=== PATIENT | male | born 1985 ===

== ENCOUNTER 2025-03-30 02:23 | Inpatient (IN) | payer MEDICAID ==
[~2025-03-30] VITALS: Ht 188 cm; Wt 164.7 kg
--- NOTE | 2025-03-30 02:47 | ED.PDOC ---
GI ASSESSMENT HPI Comments 40-YEAR-OLD MALE PRESENTS TO THE ED PATIENT WITH C/O RIGHT FLANK PAIN AND MID/RIGHT ABDOMINAL PAIN WITH NAUSEA, STARTING AT 1800. PATIENT ALSO C/O HEMATURIA, CLOTS. DENIES DIFFICULTY BREATHING, CHEST PAIN, SHORTNESS OF BREATH, DIZZINESS, DIARRHEA, RECENT TRAVEL, OR KNOWN ILL CONTACTS Chief Complaint: Flank Pain Time Seen by MD: 02:46 Reviewed Notes: Nurses Notes, Medications, Allergies Allergies: Coded Allergies: NO KNOWN ALLERGIES (Unverified , 03/30/25) Mode of Arrival: Ambulatory Past Medical History PAST MEDICAL HISTORY: Denies Surgical History: Denies all surgeries Family History Family History: Reviewed,noncontributory to illness Social History Smoker: Non-Smoker Alcohol: Denies ETOH Use Drugs: Denies Drug Use All Other Systems: Reviewed and Negative (SEE HPI) Physical Exam General Appearance: No Apparent Distress, Normal HEENT: Pharynx Normal Neck: Full Range of Motion, Non-Tender Respiratory: Lungs Clear, No Respiratory Distress, Normal Breath Sounds Cardiovascular: No Edema, No JVD, No Murmur, No Gallop, Normal Peripheral Pulses, Regular Rate/Rhythm Breast Exam: Deferred Gastrointestinal: No Organomegaly, No Pulsatile Mass, Normal Bowel Sounds, Soft, Suprapubic (TENDERNESS), Other (POSITIVE CVA TENDERNESS) Genitalia: Deferred Pelvic: Deferred Rectal: Deferred Extremities: Normal range of motion, No pedal edema Musculoskeletal : Apperance: Normal Neurologic: Alert, No Motor Deficits, Normal Affect, Normal Mood, No Sensory Deficits Cerebellar Function: Normal Reflexes: NOT DONE Skin: Dry, Normal Color, Warm Lymphatic: No Adenopathy Was a procedure done? Was a procedure done?: No GI differential Dx Differential Diagnosis: Gastritis/PUD, Gastroenteritis, Inflammatory BD, UTI, Urolithiasis, Kidney Stone X-Ray, Labs, Meds, VS Vital Signs Date Time Temp Pulse Resp B/P (MAP) Pulse Ox O2 Delivery O2 Flow Rate FiO2 03/30/25 02:23 97.6 79 18 163/105 96 97.6 Lab Test 03/30/25 02:55 Range/Units White Blood Count 10.0 4.4-10.8 10^3/uL Red Blood Count 5.23 4.5-5.90 10^6/uL Hemoglobin 17.1 13.5-17.5 g/dL Hematocrit 48.3 41.0-53.0 % Mean Corpuscular Volume 92.3 80.0-100.0 fL Mean Corpuscular Hemoglobin 32.6 H 28.0-32.0 pg Mean Corpuscular Hemoglobin Concent 35.4 32.0-36.0 g/dL Red Cell Distribution Width 13.6 11.8-14.3 % Platelet Count 191 140-450 10^3/uL Mean Platelet Volume 8.1 6.9-10.8 fL Neutrophils (%) (Auto) 64.1 37.0-80.0 % Lymphocytes (%) (Auto) 21.1 10.0-50.0 % Monocytes (%) (Auto) 12.1 H 0.0-12.0 % Eosinophils (%) (Auto) 2.2 0.0-7.0 % Basophils (%) (Auto) 0.5 0.0-2.0 % Neutrophils # (Auto) 6.4 1.6-8.6 10 ^3/uL Lymphocytes # (Auto) 2.1 0.4-5.4 10 ^3/uL Monocytes # (Auto) 1.2 0-1.3 10 ^3/uL Eosinophils # (Auto) 0.2 0-0.8 10 ^3/uL Basophils # (Auto) 0.1 0-0.2 10 ^3/uL Nucleated Red Blood Cells 0.1 % Sodium Level 136 136-145 mmol/L Potassium Level 3.7 3.5-5.1 mmol/L Chloride Level 101 98-107 mmol/L Carbon Dioxide Level 27 20-31 mmol/L Anion Gap 8 5-15 Blood Urea Nitrogen 12 9-23 mg/dL Creatinine 1.14 0.700-1.30 mg/dL Glomerular Filtration Rate Calc 84 >90 mL/min BUN/Creatinine Ratio 10.5 10.0-20.0 Serum Glucose 117 H 74-106 mg/dL Calcium Level 8.8 8.7-10.4 mg/dL Total Bilirubin 0.6 0.2-1.0 mg/dL Aspartate Amino Transferase (AST) 49 H 13-40 U/L Alanine Aminotransferase (ALT) 84 H 7-40 U/L Alkaline Phosphatase 86 46-116 U/L Total Protein 7.5 5.7-8.2 g/dL Albumin 4.1 3.2-4.8 g/dL X-Ray, Labs, Meds, VS Comment CT ABDOMEN AND PELVIS IMPRESSION: 1. Moderate right hydronephrosis and perinephric inflammatory change secondary to a partially obstructing proximal ureteral calculus. Patient continues with moderate pain and discomfort. Patient with hydronep hrosis and partially obstructing urethral calculus we will place patient in for hospitalist for admission, Time of 1ST Reevaluation: 03:10 Reevaluation 1ST: Unchanged Time of 2ND Reevaluation: 04:26 Reevaluation 2ND: Unchanged Patient Education/Counseling: Diagnosis, Treatment, Prognosis, Need For Follow Up Family Education/Counseling: No Family Present SEPSIS Sepsis Screen Date sepsis recognized/suspect: Mar 30, 2025 Time Sepsis recognized/suspect: 222 Recent Procedure: No On Antibiotic Therapy: No Respiratory Rate >20: No Heart Rate >90: No Temp<36 C (96.8 F) or >38.3 C: No SBP <90 or MAP <65 mmHG: No New Acute Mental Status Change: No Is the patient on CPAP, BIPAP,: No Physician Orders Urinalysis (03/30/25 02:47) Ct Ab Pel Wo Con-No Oral Or Iv (03/30/25 02:47) Vital Signs Date Time Temp Pulse Resp B/P (MAP) Pulse Ox O2 Delivery O2 Flow Rate FiO2 03/30/25 02:23 97.6 79 18 163/105 96 97.6 Laboratory Tests Test 03/30/25 02:55 White Blood Count 10.0 10^3/uL (4.4-10.8) Departure 1 Departure Time of Disposition: 04:25 Impression: Primary Impression: Hydronephrosis with urinary obstruction due to ureteral calculus Disposition: ADMITTED INPATIENT Condition: Stable Discharged With: Self Critical Care Note Critical Care Time?: No Stability Stability form required: JENNIFER Chahal Mar 30, 2025 02:47
[2025-03-30] MEDS: SODIUM CHLORIDE 0.9% 1,000 ML IV SCH (03:00)
[2025-03-30] MEDS: SODIUM CHLORIDE 0.9% 1,000 ML IV ONE (03:00)
[2025-03-30 03:15] LABS: Hematocrit 48.3 % (41.0-53.0); Hemoglobin 17.1 g/dL (13.5-17.5); Mean Corpuscular Hemoglobin 32.6 pg (28.0-32.0); Mean Corpuscular Volume 92.3 fL (80.0-100.0); Nucleated Red Blood Cells % 0.1 %
[2025-03-30 03:29] LABS: Albumin 4.1 g/dL (3.2-4.8); Alkaline Phosphatase 86 U/L (46-116); Anion Gap 8 (5-15); BUN/Creatinine Ratio 10.5 (10.0-20.0); Bilirubin, Total 0.6 mg/dL (0.2-1.0); Blood Urea Nitrogen 12 mg/dL (9-23); Calcium 8.8 mg/dL (8.7-10.4); Carbon Dioxide 27 mmol/L (20-31); Chloride 101 mmol/L (98-107); Potassium 3.7 mmol/L (3.5-5.1); Sodium 136 mmol/L (136-145); Total Protein 7.5 g/dL (5.7-8.2)
[2025-03-30 03:41] LABS: Alanine Aminotransferase 84 U/L (7-40); Glucose 117 mg/dL (74-106)
--- NOTE | 2025-03-30 04:18 | DVH ---
Exam: CT CT AB PEL WO CON-NO ORAL OR IV History: FLANK PAIN WITH BLOOD CLOTS Comparison Study: None Technique: Multidetector spiral CT of the abdomen was performed from lung bases to pubic symphysis. I maging was performed without IV contrast. Axial, coronal and sagittal multiplanar reformats were obta ined from the axial data set by the technologist. Radiation Dose : 1. Abdomen/Pelvis: CTDIvol 27.37 mGy, DLP 1805.81 mGy*cm. Findings: Evaluation of solid organs is limited due to lack of intravenous contrast use. Lung Bases: 1.2 cm nodular density within the posteromedial left lung base. Otherwise, no acute or si gnificant lung base finding. Normal heart size. No pleural or pericardial effusion. Liver: The liver is normal in size. No focal lesions. Gallbladder and Biliary Tree: Unremarkable Spleen: Unremarkable Pancreas: The pancreas is grossly normal in appearance. Adrenal Glands: Unremarkable Kidneys: Moderate right hydronephrosis and perinephric inflammatory change secondary to a partially o bstructing proximal ureteral calculus measuring 5 mm in diameter. No other calculi noted. No evidenc e of left hydronephrosis. Bladder: Grossly unremarkable for degree of distention. Bowel: Small hiatal hernia. The stomach is grossly normal in appearance. Small bowel and colon are no rmal in caliber and distribution. The appendix is normal. Ascites: Absent Lymphadenopathy: No mesenteric, retroperitoneal or periportal lymphadenopathy. Abdominal Wall and Mesentery: Unremarkable. Vasculature: The visualized abdominal aorta is normal in size and caliber. Evaluation of abdominal a nd pelvic vessels is limited due to lack of intravenous contrast. Pelvic Organs: Unremarkable Musculoskeletal: No aggressive focal bony lesions, acute fractures or dislocation. IMPRESSION: 1. Moderate right hydronephrosis and perinephric inflammatory change secondary to a partially obstruc ting proximal ureteral calculus. Radiation optimization: All CT scans at this facility use at least one of these dose optimization cecilia hniques: automated exposure control mA and/or kV adjustment per patient size (includes targeted exam s where dose is matched to clinical indication) or iterative reconstruction.
[2025-03-30] MEDS: TAMSULOSIN HYDROCHLORIDE 0.4 MG CAP PO ONE (04:30)
[2025-03-30] MEDS: KETOROLAC TROMETH 30 MG/ML 1ML VIAL IV ONE (06:23)
[2025-03-30] MEDS: ONDANSETRON HCL 4 MG/2 ML VIAL IV ONE (06:24)
[2025-03-30] MEDS ORDERED: HYDROcodone-ACET 5/325MG TAB PO PRN (09:15)
[2025-03-30] MEDS ORDERED: MORPHINE SULFATE INJ 2 MG/ml SYRG IV PRN (09:15)
[2025-03-30] MEDS ORDERED: ONDANSETRON HCL 4 MG/2 ML VIAL IV PRN (09:15)
--- NOTE | 2025-03-30 09:25 | DVHHP2 ---
History of Present Illness Reason for Visit: Right flank pain radiating to the abdomen History of Present Illness Aryan Gomez is a 40-year-old male with no reported past medical history who presents to the ED with right flank pain that radiated to the abdomen at started yesterday. Patient reported that the pain was 10/10 felt like waves and was constant. He reports that this is the 2nd time happening in the 1st incident occurred last year in September. Patient reports that he takes Tylenol on and off for pain but no prescription medications. Patient also reports that he dr inks occasionally. Upon examination patient reports that his pain is 0/10 and that the pain medication had helped. Patient denies any recent trauma or injury, recent sick contacts, recent ingestion of spoiled food, recent travels, chest pain, shortness of breath, fever, chills, lightheadedness, weakness, dizziness, nausea, vomiting, or diarrhea. Past Surgical History: None Family History: None Smoke: No ALCOHOL: occassional Drugs: None Lives: with Family Domestic Violence: Neg Review of Systems Gastrointestinal: Abdominal Pain Musculoskeletal: other (Right flank pain) Allergies: Coded Allergies: NO KNOWN ALLERGIES (Unverified , 03/30/25) Medications Current Medications Medications Dose Ordered Sig/Yara Route Start Time Stop Time Status Last Admin Dose Admin Tamsulosin HCl 0.4 mg QPM PO 03/30/25 18:00 UNV Sodium Chloride 1,000 ml @ 100 mls/hr Q10H IV 03/30/25 09:15 UNV Exam Vital Signs Vital Signs Date Time Temp Pulse Resp B/P (MAP) Pulse Ox O2 Delivery O2 Flow Rate FiO2 03/30/25 02:46 Room Air 03/30/25 02:23 97.6 79 18 163/105 96 97.6 General Appearance: Alert, Oriented X3, Cooperative, No acute distress HEENT: Atraumatic, PERRLA, EOMI, Mucous membr. moist/pink Respiratory: Clear to auscultation Cardiovascular: Regular rate, Normal S1, Normal S2, No murmurs Abdominal: Normal bowel sounds, Soft Extremities: No clubbing, No cyanosis, No edema, Normal pulses Skin: No rashes, No breakdown, No significant lesion Neuro: Normal gait, Normal speech, Strength at 5/5 X4 ext, Normal tone, Sensation intact Psych/Mental Status: Mental status NL, Mood NL Labs/Xrays Labs Test 03/30/25 02:55 Range/Units White Blood Count 10.0 4.4-10.8 10^3/uL Red Blood Count 5.23 4.5-5.90 10^6/uL Hemoglobin 17.1 13.5-17.5 g/dL Hematocrit 48.3 41.0-53.0 % Mean Corpuscular Volume 92.3 80.0-100.0 fL Mean Corpuscular Hemoglobin 32.6 H 28.0-32.0 pg Mean Corpuscular Hemoglobin Concent 35.4 32.0-36.0 g/dL Red Cell Distribution Width 13.6 11.8-14.3 % Platelet Count 191 140-450 10^3/uL Mean Platelet Volume 8.1 6.9-10.8 fL Neutrophils (%) (Auto) 64.1 37.0-80.0 % Lymphocytes (%) (Auto) 21.1 10.0-50.0 % Monocytes (%) (Auto) 12.1 H 0.0-12.0 % Eosinophils (%) (Auto) 2.2 0.0-7.0 % Basophils (%) (Auto) 0.5 0.0-2.0 % Neutrophils # (Auto) 6.4 1.6-8.6 10 ^3/uL Lymphocytes # (Auto) 2.1 0.4-5.4 10 ^3/uL Monocytes # (Auto) 1.2 0-1.3 10 ^3/uL Eosinophils # (Auto) 0.2 0-0.8 10 ^3/uL Basophils # (Auto) 0.1 0-0.2 10 ^3/uL Nucleated Red Blood Cells 0.1 % Sodium Level 136 136-145 mmol/L Potassium Level 3.7 3.5-5.1 mmol/L Chloride Level 101 98-107 mmol/L Carbon Dioxide Level 27 20-31 mmol/L Anion Gap 8 5-15 Blood Urea Nitrogen 12 9-23 mg/dL Creatinine 1.14 0.700-1.30 mg/dL Glomerular Filtration Rate Calc 84 >90 mL/min BUN/Creatinine Ratio 10.5 10.0-20.0 Serum Glucose 117 H 74-106 mg/dL Calcium Level 8.8 8.7-10.4 mg/dL Total Bilirubin 0.6 0.2-1.0 mg/dL Aspartate Amino Transferase (AST) 49 H 13-40 U/L Alanine Aminotransferase (ALT) 84 H 7-40 U/L Alkaline Phosphatase 86 46-116 U/L Total Protein 7.5 5.7-8.2 g/dL Albumin 4.1 3.2-4.8 g/dL Exam: CT CT AB PEL WO CON-NO ORAL OR IV History: FLANK PAIN WITH BLOOD CLOTS Comparison Study: None Technique: Multidetector spiral CT of the abdomen was performed from lung bases to pubic symphysis. Imaging was performed without IV contrast. Axial, coronal and sagittal multiplanar reformats were obtained from the axial data set by the technologist. Radiation Dose : 1. Abdomen/Pelvis: CTDIvol 27.37 mGy, DLP 1805.81 mGy*cm. Findings: Evaluation of solid organs is limited due to lack of intravenous contrast use. Lung Bases: 1.2 cm nodular density within the posteromedial left lung base. Otherwise, no acute or significant lung base finding. Normal heart size. No pleural or pericardial effusion. Liver: The liver is normal in size. No focal lesions. Gallbladder and Biliary Tree: Unremarkable Spleen: Unremarkable Pancreas: The pancreas is grossly normal in appearance. Adrenal Glands: Unremarkable Kidneys: Moderate right hydronephrosis and perinephric inflammatory change secondary to a partially obstructing proximal ureteral calculus measuring 5 mm in diameter. No other calculi noted. No evidence of left hydronephrosis. Bladder: Grossly unremarkable for degree of distention. Bowel: Small hiatal hernia. The stomach is grossly normal in appearance. Small bowel and colon are normal in caliber and distribution. The appendix is normal. Ascites: Absent Lymphadenopathy: No mesenteric, retroperitoneal or periportal lymphadenopathy. Abdominal Wall and Mesentery: Unremarkable. Vasculature: The visualized abdominal aorta is normal in size and caliber. Evaluation of abdominal and pelvic vessels is limited due to lack of intravenous contrast. Pelvic Organs: Unremarkable Musculoskeletal: No aggressive focal bony lesions, acute fractures or dislocation. IMPRESSION: 1. Moderate right hydronephrosis and perinephric inflammatory change secondary to a partially obstructing proximal ureteral calculus. SEPSIS Sepsis Screen Date sepsis recognized/suspect: Mar 30, 2025 Time Sepsis recognized/suspect: 222 Recent Procedure: No On Antibiotic Therapy: No Respiratory Rate >20: No Heart Rate >90: No Temp<36 C (96.8 F) or >38.3 C: No SBP <90 or MAP <65 mmHG: No New Acute Mental Status Change: No Is the patient on CPAP, BIPAP,: No Physician Orders Urinalysis (03/30/25 02:47) Ct Ab Pel Wo Con-No Oral Or Iv (03/30/25 02:47) Tamsulosin Hydrochloride (Flomax) (03/30/25 18:00) Sodium Chloride 0.9% (03/30/25 09:15) Admit (03/30/25 09:11) Allergies (03/30/25 09:11) Code Status (03/30/25 09:11) Hydrocodone-Acet 5/325mg Tab ([place] 5/32 (03/30/25 09:15) Ondansetron Hcl (Zofran) (03/30/25 09:15) Complete Blood Count (03/31/25 04:00) Comprehensive Metabolic Panel (03/31/25 04:00) Cardiac Diet-2gna,Lofat,Lochol (03/30/25 Breakfast) Acetaminophen Tablet (Tylenol Tablet) (03/30/25 09:15) Morphine Sulfate Injection (03/30/25 09:15) Sequential Compression Device (03/30/25 ) Vital Signs Date Time Temp Pulse Resp B/P (MAP) Pulse Ox O2 Delivery O2 Flow Rate FiO2 03/30/25 02:46 Room Air 03/30/25 02:23 97.6 79 18 163/105 96 97.6 Laboratory Tests Test 03/30/25 02:55 White Blood Count 10.0 10^3/uL (4.4-10.8) Medications Medications Dose Ordered Sig/Yara Route Start Time Stop Time Status Last Admin Dose Admin Ketorolac Tromethamine 30 mg ONCE ONCE IV 03/30/25 03:00 03/30/25 03:01 DC 03/30/25 06:23 30 MG Ondansetron HCl 4 mg ONCE ONCE IV 03/30/25 03:00 03/30/25 03:01 DC 03/30/25 06:24 4 MG Sodium Chloride 1,000 ml @ 1,000 mls/hr Q1H ONCE IV 03/30/25 03:00 03/30/25 03:59 DC 03/30/25 03:00 1,000 MLS/HR Tamsulosin HCl 0.4 mg ONCE ONCE PO 03/30/25 04:30 03/30/25 04:31 DC 03/30/25 04:30 0.4 MG Assessment/Plan Assessment/Plan Assessment Intractable right flank pain likely due to moderate right hydronephrosis and perinephric inflammatory partially obstructing proximal ureteral calculus Morbid obesity Alcohol use Plan Admit to med surge Antiemetics Pain management Tamsulosin NS 1 L given in ED CT abdomen and pelvis noted UA IV fluids Diet Patient reports no home medications taken DVT prophylaxis-not indicated patient ambulating PUD prophylaxis-not indicated no history of GERD or GI bleed Discussed plan of care with patient and nurse Consider Urology consult if calculi does not pass or pain is unrelieved or increasing inflammatory changes Counseled patient on cessation of alcohol use Counseled patient on lifestyle modifications, diet, and exercise [id number] Preventive counseling healthy eating habits, physical activity, and regular checkups Plan discussed with: Patient My Orders Orders - SUMIT MEJIA Procedure Category Date Status Time Tamsulosin PHA 03/30/25 Logged Hydrochloride (Flomax) 18:00 Sodium Chloride 0.9% PHA 03/30/25 Logged 09:15 Admit ADMIT 03/30/25 Transmitted 09:11 Allergies ACE 03/30/25 In Process 09:11 Code Status CODE 03/30/25 Transmitted 09:11 Hydrocodone-Acet PHA 03/30/25 Transmitted 5/325mg Tab ([place] 09:15 Ondansetron Hcl PHA 03/30/25 Transmitted (Zofran) 09:15 Complete Blood Count LAB 03/31/25 Verified 04:00 Comprehensive LAB 03/31/25 Verified Metabolic Panel 04:00 Cardiac DIET 03/30/25 Transmitted Diet-2gna,Lofat,Lochol Breakfast Acetaminophen Tablet PHA 03/30/25 Transmitted (Tylenol Tablet) 09:15 Morphine Sulfate PHA 03/30/25 Transmitted Injection 09:15 Sequential ACE 03/30/25 In Process Compression Device Date of Service: Mar 30, 2025 Billing Provider: SUMIT MEJIA Common Visit Codes: 68091-CSRCTHT INP/OBS CARE (HIGH) Secondary Visit Codes: [id number] COUNSELING IND SUMIT MEJIA Mar 30, 2025 09:25
[2025-03-30 12:30] LABS: Urine Protein, UAD Negative (Negative)
[2025-03-30 14:03] VITALS: PULSE 74; RESP 17; O2SAT 96
[2025-03-30 15:38] VITALS: BP 135/96; PULSE 75; RESP 18; TEMP 98.6; O2SAT 95
[2025-03-30] MEDS: TAMSULOSIN HYDROCHLORIDE 0.4 MG CAP PO SCH (17:37)
[2025-03-30 18:47] VITALS: BP 137/72; PULSE 78; RESP 18; TEMP 98.2; O2SAT 95
[2025-03-30 21:16] VITALS: BP 140/78; PULSE 84; RESP 20; TEMP 99.6; O2SAT 93
[2025-03-31] VITALS (8 sets, daily range): BP systolic 120–141; BP diastolic 56–89; PULSE 72–91; RESP 16–20; TEMP 98.1–99.2; O2SAT 93–96
[2025-03-31 07:28] LABS: Hematocrit 48.9 % (41.0-53.0); Hemoglobin 16.8 g/dL (13.5-17.5); Mean Corpuscular Hemoglobin 32.6 pg (28.0-32.0); Mean Corpuscular Volume 95.1 fL (80.0-100.0); Nucleated Red Blood Cells % 0.1 %
[2025-03-31 07:45] LABS: Alkaline Phosphatase 81 U/L (46-116); Anion Gap 9 (5-15); BUN/Creatinine Ratio 11.3 (10.0-20.0); Blood Urea Nitrogen 14 mg/dL (9-23); Calcium 8.8 mg/dL (8.7-10.4); Carbon Dioxide 25 mmol/L (20-31); Chloride 103 mmol/L (98-107); Potassium 4.0 mmol/L (3.5-5.1); Sodium 137 mmol/L (136-145); Total Protein 7.1 g/dL (5.7-8.2)
[2025-03-31 07:46] LABS: Albumin 4.1 g/dL (3.2-4.8); Bilirubin, Total 1.1 mg/dL (0.2-1.0)
[2025-03-31 07:47] LABS: Alanine Aminotransferase 70 U/L (7-40); Glucose 108 mg/dL (74-106)
--- NOTE | 2025-03-31 18:20 | DVHPN2 ---
Subjective Cross ring for dyspnea with the hospitalist today. Patient admitted overnight for renal colic pain. Today he is pain-free. Changes from previous H/P or p: No Changes Gastrointestinal: Abdominal Pain Musculoskeletal: other (Right flank pain) Objective Vitals Vital Signs Date Time Temp Pulse Resp B/P (MAP) Pulse Ox O2 Delivery O2 Flow Rate FiO2 03/31/25 17:10 98.3 80 18 122/69 (86) 95 98.3 03/30/25 15:38 Room Air* 0 21 Exam Obese gentleman comfortable sitting in the chair. Alert awake oriented x3. HEENT neck supple no JVD. Heart regular rate and rhythm S1-S2. Lungs fair air movement without rales wheezes. Abdomen obese soft nontender positive bowel sounds. Extremities no edema positive pulses. Medications Current Medications Medications Dose Ordered Sig/Yara Route Start Time Stop Time Status Last Admin Dose Admin Tamsulosin HCl 0.4 mg QPM PO 03/30/25 18:00 03/30/25 17:37 0.4 MG Sodium Chloride 1,000 ml @ 100 mls/hr Q10H IV 03/30/25 09:15 03/31/25 14:38 100 MLS/HR Acetaminophen/ Hydrocodone Bitart 1 tab Q4HP PRN PO 03/30/25 09:15 Ondansetron HCl 4 mg Q4HP PRN IV 03/30/25 09:15 Acetaminophen 650 mg Q6HP PRN PO 03/30/25 09:15 Morphine Sulfate 2 mg Q4HPRN PRN IV 03/30/25 09:15 Laboratory Results Laboratory Tests 03/31/25 06:43 Chemistry Test 03/31/25 06:43 Albumin 4.1 g/dL (3.2-4.8) Calcium Level 8.8 mg/dL (8.7-10.4) Total Protein 7.1 g/dL (5.7-8.2) LFT Test 03/31/25 06:43 Alanine Aminotransferase (ALT) 70 U/L (7-40) H Alkaline Phosphatase 81 U/L (46-116) Aspartate Amino Transferase (AST) 38 U/L (13-40) Total Bilirubin 1.1 mg/dL (0.2-1.0) H Urinalysis Test 03/30/25 07:41 Urine Color Light-yellow (Yellow) Urine Clarity Clear (Clear) Urine pH 7.0 (5.0-9.0) Urine Specific [place] 1.017 (1.001-1.035) Urine Protein Negative (Negative) Urine Ketones Negative (Negative) Urine Blood 3+ /uL (Negative) H Urine Nitrite Negative (Negative) Urine Bilirubin Negative (Negative) Urine Urobilinogen Normal mg/dL (Negative) Urine Leukocyte Esterase Negative /uL (Negative) Urine RBC 375 /hpf (0 - 3) Urine Microscopic WBC 3 /HPF (0-3) Urine Squamous Epithelial Cells Few /hpf (<5) Urine Bacteria None seen /hpf (None Seen) Urine Glucose Normal mg/dL (Normal) Assessment/Plan Assessment/Plan Intractable right flank pain likely due to moderate right hydronephrosis and perinephric inflammatory partially obstructing proximal ureteral calculus Morbid obesity Alcohol use I will give him mannitol for forced renal diuresis. Aggressive IV hydration and Lasix. Continue Flomax. Monitor him overnight. If he remains free consider discharge home tomorrow. Strain his urine. Discussed with the patient and nurse. Plan discussed with: Patient, Other Date of Service: Mar 31, 2025 Billing Provider: JUAN LUIS MORAN MD Common Visit Codes: [id number] INP/OBS CARE(MOD) JUAN LUIS MORAN MD Mar 31, 2025 18:20
[2025-03-31] MEDS: FUROSEMIDE 20 MG/2 ML VIAL IV SCH (18:56)
[2025-03-31] MEDS: MANNITOL 20% SOLN 100 gm/500ml 300 ML IV ONE (18:59)
[2025-03-31] MEDS: SODIUM CHLORIDE 0.9% 1,000 ML IV SCH (19:00)
[2025-03-31] MEDS: SODIUM CHLORIDE 0.9% 500 ML IV ONE (19:00)
[2025-03-31] MEDS: ACETAMINOPHEN 325 MG TAB PO PRN (20:17)
[2025-04-01 01:00] VITALS: BP 124/73; PULSE 85; RESP 18; TEMP 98.4; O2SAT 96
[2025-04-01 05:00] VITALS: BP 116/85; PULSE 84; RESP 18; TEMP 98; O2SAT 96
[2025-04-01 06:56] LABS: Chloride 100 mmol/L (98-107); Potassium 3.8 mmol/L (3.5-5.1); Sodium 138 mmol/L (136-145)
[2025-04-01 06:57] LABS: Anion Gap 8 (5-15); Carbon Dioxide 30 mmol/L (20-31)
[2025-04-01 06:58] LABS: Calcium 9.1 mg/dL (8.7-10.4)
[2025-04-01 07:02] LABS: Glucose 106 mg/dL (74-106)
[2025-04-01 07:03] LABS: BUN/Creatinine Ratio 11.1 (10.0-20.0); Blood Urea Nitrogen 14 mg/dL (9-23)
[2025-04-01 08:28] VITALS: BP 114/74; PULSE 81; RESP 20; TEMP 98.3; O2SAT 91
[2025-04-01 12:30] VITALS: BP 130/77; PULSE 81; RESP 20; TEMP 98.2; O2SAT 94
--- NOTE | 2025-04-01 17:02 | DVHDS2 ---
Discharge Summary Date of Admission Mar 30, 2025 at 09:11 Date of Discharge: Apr 01, 2025 Labs/Diagnostic Data: Laboratory Results Test 04/01/25 05:35 03/31/25 06:43 03/30/25 07:41 Sodium Level 138 mmol/L (136-145) Potassium Level 3.8 mmol/L (3.5-5.1) Chloride Level 100 mmol/L (98-107) Carbon Dioxide Level 30 mmol/L (20-31) Anion Gap 8 (5-15) Blood Urea Nitrogen 14 mg/dL (9-23) Creatinine 1.26 mg/dL (0.700-1.30) Glomerular Filtration Rate Calc 74 mL/min (>90) BUN/Creatinine Ratio 11.1 (10.0-20.0) Serum Glucose 106 mg/dL (74-106) Calcium Level 9.1 mg/dL (8.7-10.4) White Blood Count 8.4 10^3/uL (4.4-10.8) Red Blood Count 5.14 10^6/uL (4.5-5.90) Hemoglobin 16.8 g/dL (13.5-17.5) Hematocrit 48.9 % (41.0-53.0) Mean Corpuscular Volume 95.1 fL (80.0-100.0) Mean Corpuscular Hemoglobin 32.6 pg (28.0-32.0) Mean Corpuscular Hemoglobin Concent 34.3 g/dL (32.0-36.0) Red Cell Distribution Width 13.6 % (11.8-14.3) Platelet Count 177 10^3/uL (140-450) Mean Platelet Volume 7.9 fL (6.9-10.8) Neutrophils (%) (Auto) 64.6 % (37.0-80.0) Lymphocytes (%) (Auto) 23.2 % (10.0-50.0) Monocytes (%) (Auto) 10.1 % (0.0-12.0) Eosinophils (%) (Auto) 1.5 % (0.0-7.0) Basophils (%) (Auto) 0.6 % (0.0-2.0) Neutrophils # (Auto) 5.4 10 ^3/uL (1.6-8.6) Lymphocytes # (Auto) 1.9 10 ^3/uL (0.4-5.4) Monocytes # (Auto) 0.8 10 ^3/uL (0-1.3) Eosinophils # (Auto) 0.1 10 ^3/uL (0-0.8) Basophils # (Auto) 0.1 10 ^3/uL (0-0.2) Nucleated Red Blood Cells 0.1 % Total Bilirubin 1.1 mg/dL (0.2-1.0) Aspartate Amino Transferase (AST) 38 U/L (13-40) Alanine Aminotransferase (ALT) 70 U/L (7-40) Alkaline Phosphatase 81 U/L (46-116) Total Protein 7.1 g/dL (5.7-8.2) Albumin 4.1 g/dL (3.2-4.8) Urine Color Light-yellow (Yellow) Urine Clarity Clear (Clear) Urine pH 7.0 (5.0-9.0) Urine Specific [place] 1.017 (1.001-1.035) Urine Protein Negative (Negative) Urine Ketones Negative (Negative) Urine Blood 3+ /uL (Negative) Urine Nitrite Negative (Negative) Urine Bilirubin Negative (Negative) Urine Urobilinogen Normal mg/dL (Negative) Urine Leukocyte Esterase Negative /uL (Negative) Urine RBC 375 /hpf (0 - 3) Urine Microscopic WBC 3 /HPF (0-3) Urine Squamous Epithelial Cells Few /hpf (<5) Urine Bacteria None seen /hpf (None Seen) Urine Glucose Normal mg/dL (Normal) Other Laboratory Tests 04/01/25 05:35 03/31/25 06:43 Brief Hx & Hospital Course: Aryan Gomez is a 40-year-old male with no reported past medical history who presents to the ED with right flank pain that radiated to the abdomen at started yesterday. Patient reported that the pain was 10/10 felt like waves and was constant. He reports that this is the 2nd time happening in the 1st incident occurred last year in September. Patient reports that he takes Tylenol on and off for pain but no prescription medications. Patient also reports that he drinks occasionally. Upon examination patient reports that his pain is 0/10 and that the pain medication had helped. Patient denies any recent trauma or injury, recent sick contacts, recent ingestion of spoiled food, recent travels, chest pain, shortness of breath, fever, chills, lightheadedness, weakness, dizziness, nausea, vomiting, or diarrhea. He is admitted and received IV fluids, Lasix, Flomax and mannitol for forced diuresis. Patient appears he may have passed the stone. His pain is resolved. He is feeling better back to normal baseline status. Therefore he has been discharged home in stable condition. However he is advised to follow up with the PCP and urologist should he have any recurrent symptoms. Meantime patient also counseled and educated regarding his obesity and advised with a low-fat low-cholesterol diet, exercise and weight loss programs. He is advised to follow up with the primary care physician for further weight loss counseling and treatment care plan. Patient verbalized understanding of his hospital diagnosis, treatment he received, discharge medications, discharge instructions and discharge follow-up plan of care and agree with the care plan as outlined Operations or Procedures Exam: CT CT AB PEL WO CON-NO ORAL OR IV History: FLANK PAIN WITH BLOOD CLOTS Comparison Study: None Technique: Multidetector spiral CT of the abdomen was performed from lung bases to pubic symphysis. Imaging was performed without IV contrast. Axial, coronal and sagittal multiplanar reformats were obtained from the axial data set by the technologist. Radiation Dose : 1. Abdomen/Pelvis: CTDIvol 27.37 mGy, DLP 1805.81 mGy*cm. Findings: Evaluation of solid organs is limited due to lack of intravenous contrast use. Lung Bases: 1.2 cm nodular density within the posteromedial left lung base. Otherwise, no acute or significant lung base finding. Normal heart size. No pleural or pericardial effusion. Liver: The liver is normal in size. No focal lesions. Gallbladder and Biliary Tree: Unremarkable Spleen: Unremarkable Pancreas: The pancreas is grossly normal in appearance. Adrenal Glands: Unremarkable Kidneys: Moderate right hydronephrosis and perinephric inflammatory change secondary to a partially obstructing proximal ureteral calculus measuring 5 mm in diameter. No other calculi noted. No evidence of left hydronephrosis. Bladder: Grossly unremarkable for degree of distention. Bowel: Small hiatal hernia. The stomach is grossly normal in appearance. Small bowel and colon are normal in caliber and distribution. The appendix is normal. Ascites: Absent Lymphadenopathy: No mesenteric, retroperitoneal or periportal lymphadenopathy. Abdominal Wall and Mesentery: Unremarkable. Vasculature: The visualized abdominal aorta is normal in size and caliber. Evaluation of abdominal and pelvic vessels is limited due to lack of intravenous contrast. Pelvic Organs: Unremarkable Musculoskeletal: No aggressive focal bony lesions, acute fractures or dislocation. IMPRESSION: 1. Moderate right hydronephrosis and perinephric inflammatory change secondary to a partially obstructing proximal ureteral calculus. Condition at Discharge: Stable Final Diagnosis/Problems List Intractable right flank pain partially obstructing proximal ureteral calculus Morbid obesity Alcohol use Discharge Disposition: Home Discharge Instruct/Medications Diet: Consistent carbohydrate, Cardiac 2g Na,low cholest Activity: No Restrictions, As Tolerated Follow Up/Referral: Primary care physician and referral to urologist if you have any recurrent symptoms Medications: Home medications if your taking any No Active Prescriptions or Reported Meds Discharge Statement: "Patient was advised to return to the ER or call 911 if any headaches, dizziness, shortness of breath, chest pain, abdominal pain, bleeding, fevers, or worsening of medical condition. Patient was counseled about treatment plan, medications, possible side effects, patientverbalized understanding. All questions were answered to the best of my ability. This discharge took greater then 30 minutes in planning, reviewing documentation, counseling the patient, and discussing with other team members." ASSESSMENT ASSESSMENT Assessment Intractable right flank pain partially obstructing proximal ureteral calculus Morbid obesity Alcohol use Date of Service: Apr 01, 2025 Billing Provider: JUAN LUIS MORAN MD Common Visit Codes: 88699-JIZ/OBS DISCH DAY <30MIN JUAN LUIS MORAN MD Apr 01, 2025 17:02
[2025-04-01 17:36] VITALS: BP 130/79; PULSE 75; RESP 20; TEMP 98.2; O2SAT 94
== END 2025-04-01 18:23 | disposition home or self-care (01) | DRG 694 ==
LOC: ER 02:23 → EDBD 02:23 → OVERFLOW 09:11 → WEST WING 03-31 17:00
DX: N13.2 Hydronephrosis with renal and ureteral calculous obstruction (principal); Z68.42 Body mass index [BMI] 45.0-49.9, adult; E66.01 Morbid (severe) obesity due to excess calories; F10.90 Alcohol use, unspecified, uncomplicated; Z79.899 Other long term (current) drug therapy; Y90.9 Presence of alcohol in blood, level not specified
CPT/HCPCS: 36415; 74176; 80048; 80053; 81001; 85025; 96360; G0378; J1885; J2405